=== PATIENT | male | born 1990 | race African-American/Black ===

== ENCOUNTER 2024-05-10 18:05 | Inpatient (IN) | payer MEDICAID, SELFPAY ==
--- NOTE | ~2024-05-10 | CT_ITS ---
EXAMINATION: CT PELVIS WITH CONTRAST CLINICAL INFORMATION: Scrotal pain COMPARISON: Scrotal ultrasound from the same day TECHNIQUE: Helical scanning was performed with submillimeter collimation through the pelvis with the use of oral contrast and during bolus intravenous injection of 85 mL of Omnipaque 350 intravenous contrast. Sagittal and coronal multiplanar 2-D reconstructions were obtained. This CT examination was performed using dose optimization techniques as appropriate, variously including the following: *Automated exposure control *Adjustment of mA and/or kV according to patient size (this includes techniques or standardized protocols for targeted exams where dose is matched to indication/reason for exam; i.e. extremities or head) *Use of iterative reconstruction technique DLP: 360 mGy-cm FINDINGS: Limited evaluation in some regions due to motion artifact. There is subcutaneous edema in the left inguinal region, perineum, and scrotum. No soft tissue gas identified. There are multiple enlarged bilateral inguinal lymph nodes, left greater than right measuring up to approximately 1.8 cm in short axis dimension, which are favored to be reactive. Partially distended urinary bladder without significant wall thickening. Prostate gland appears unremarkable. No appreciable bowel abnormality in the setting of motion artifact. Appendix appears nondilated. No free fluid or definite free air. Degenerative change noted in the spine at L5-S1. CT/CT pelvis w IV con IMPRESSION: Subcutaneous edema in the left inguinal region, perineum, and scrotum, suspicious for cellulitis/infection. No soft tissue gas identified. Bilateral inguinal adenopathy is favored to be reactive in this setting.
--- NOTE | ~2024-05-10 | US_ITS ---
EXAMINATION: US SCROTUM CLINICAL INFORMATION: Left scrotal swelling and pain. COMPARISON: None available. TECHNIQUE: A sonogram of the scrotum was performed assessing peres-scale appearance and color Doppler flow. Spectral Doppler analysis of the arterial and venous flow were performed in the testes bilaterally. FINDINGS: RIGHT: Right testicle measures 4.7 x 3.0 x 2.9 cm, volume 21.5 mL. No focal testicular parenchymal lesions are visualized. Spectral Doppler analysis of the arterial and venous flow is normal in the right testis. Right epididymal head is normal in size. No right hydrocele or varicocele is seen. Right epididymal Doppler flow is normal. LEFT: Left testicle measures 4.4 x 2.5 x 2.6 cm, volume 15.0 mL. No focal testicular parenchymal lesions are visualized. Spectral Doppler analysis of the arterial and venous flow is normal in the left testis. Left epididymal head is normal in size. No left hydrocele or varicocele is seen. Left epididymal Doppler flow is normal. Diffuse skin thickening and subcutaneous edema seen within the left scrotum US/US scrotum IMPRESSION: 1. Diffuse skin thickening and subcutaneous edema seen within the left scrotum. 2. Bilateral testicles and epididymides are normal.
--- NOTE | ~2024-05-10 | US_ITS ---
EXAMINATION: US SCROTUM CLINICAL INFORMATION: Left scrotal swelling and pain. COMPARISON: None available. TECHNIQUE: A sonogram of the scrotum was performed assessing peres-scale appearance and color Doppler flow. Spectral Doppler analysis of the arterial and venous flow were performed in the testes bilaterally. FINDINGS: RIGHT: Right testicle measures 4.7 x 3.0 x 2.9 cm, volume 21.5 mL. No focal testicular parenchymal lesions are visualized. Spectral Doppler analysis of the arterial and venous flow is normal in the right testis. Right epididymal head is normal in size. No right hydrocele or varicocele is seen. Right epididymal Doppler flow is normal. LEFT: Left testicle measures 4.4 x 2.5 x 2.6 cm, volume 15.0 mL. No focal testicular parenchymal lesions are visualized. Spectral Doppler analysis of the arterial and venous flow is normal in the left testis. Left epididymal head is normal in size. No left hydrocele or varicocele is seen. Left epididymal Doppler flow is normal. Diffuse skin thickening and subcutaneous edema seen within the left scrotum US/US scrotum doppler IMPRESSION: 1. Diffuse skin thickening and subcutaneous edema seen within the left scrotum. 2. Bilateral testicles and epididymides are normal.
[2024-05-10 18:12] VITALS: BP 130/85; PULSE 97; RESP 16; TEMP 36.5; O2SAT 96; BMI 35.3
[2024-05-10 19:56] VITALS: BP 126/88; PULSE 94; RESP 16; TEMP 36.7; O2SAT 96
[2024-05-10 21:27] LABS: MANUAL DIFF FLAG NO
[2024-05-10 21:44] LABS: Lactic Acid 0.8 mmol/L (0.5-2.0)
[2024-05-10 21:46] LABS: Basophils Percent Auto 0.3 % (0-2); Eosinophils Absolute Auto 0.8 X10*3/uL (0.0-0.4); Eosinophils Percent Auto 5.8 % (0-4); Hematocrit 39.5 % (42.0-52.0); Hemoglobin 13.6 g/dl (14.0-18.0); Imm Gran Abs Auto 0.04 X10*3/uL (0.00-0.03); Imm Gran Pct Auto 0.3 % (0.0-0.4); Lymphocytes Absolute Auto 2.5 X10*3/uL (1.2-4.9); Mean Corpuscular HGB Conc 34.4 g/dl (31.0-36.0); Mean Corpuscular Hemoglobin 28.9 pg (27.0-33.0); Mean Platelet Volume 8.6 fL (9.4-12.4); Monocytes Absolute Auto 0.7 X10*3/uL (0.1-1.2); Neutrophils Absolute Auto 10.3 x10*3/uL (2.0-8.3); Neutrophils Percent Auto 71.6 % (45-73); Platelet Count 302 X10*3/uL (160-400); Red Cell Distribution Width 13.9 % (11.0-16.0); White Blood Count 14.4 X10*3/uL (4.8-10.8)
[2024-05-10 21:47] LABS: Alanine Aminotransferase 28 U/L (0-40); Albumin Level 3.6 g/dL (3.5-5.0); Alkaline Phosphatase 70 U/L (39-117); Anion Gap 11 (12-20); Aspartate Amino Transferase 14 U/L (5-37); Bilirubin Total 0.4 mg/dL (0.0-1.0); Blood Urea Nitrogen 11 mg/dL (9-16); Calcium 8.7 mg/dL (8.4-10.2); Carbon Dioxide 27 mmol/L (22-29); Chloride 104 mmol/L (96-108); Creatinine Clr Calc Pharmacy 117.9; Estimated Glomerular Filt Rate > 60; Glucose Random 280 mg/dL (60-115); Lipase 33 U/L (8-78); Potassium 4.1 mmol/L (3.3-5.1); Sodium 138 mmol/L (135-145); Total Protein 8.1 g/dL (6.5-8.0)
--- NOTE | 2024-05-10 22:22 | ED_ITS ---
HPI - Male Genitourinary General Chief complaint: Urogenital-Male Stated complaint: groin pain and swelling Time Seen by Provider: 05/10/24 21:05 Source: patient, RN notes reviewed and old records reviewed Mode of arrival: ambulatory Limitations: no limitations History of Present Illness ED Provider: Jairon BOYKIN Narrative: 34-year-old male past medical history significant for diabetes presents for evaluation of sore. Patient states he has a small pimple to the left side of his scrotum for about 1 week He reports that this afternoon few hours prior to arrival he has squeezed the area trying to ?popped the pimple. ? He then took a nap and when he woke up his scrotum was significantly swollen He reports that he had only minor discomfort He denies any fevers or chills He has had similar episodes in the past that did not seem at severe Related Data Allergies Allergy/AdvReac Type Severity Reaction Status Date / Time No Known Allergies Allergy Verified 05/10/24 18:15 Review of Systems 2 Constitutional: Constitutional: Denies body ache(s), Denies chills, Denies fever(s) and Denies frequent falls ENT: Denies vertigo Cardiovascular: Cardiovascular: Denies chest pain and Denies dyspnea Respiratory: Respiratory: Denies cough and Denies dyspnea Gastrointestinal: Gastrointestinal: Denies abdominal pain, Denies nausea and Denies vomiting Genitourinary: Genitourinary: Denies hematuria, Denies oliguria, Denies dysuria, Denies penile discharge, Reports scrotal swelling and Denies testicular pain Musculoskeletal: Musculoskeletal: Denies back pain Integumentary/Breasts: Skin/Breast: Denies rash Neurologic: Denies vertigo and Denies frequent falls PMFSH Social History Social History Advance Directives: No Advance Directives Information Provided: No Do you have a plan to hurt others: No Plan Physical Exam 2 Vital Signs: Vital Signs: Last Vital Signs Temp 98.0 F 05/10/24 19:56 Pulse 94 05/10/24 19:56 Resp 16 05/10/24 19:56 BP 126/88 05/10/24 19:56 Pulse Ox 96 05/10/24 19:56 O2 Del Method Room Air 05/10/24 19:56 BMI result Body Mass Index 35.3 Const: General: healthy appearing, comfortable, no acute distress, alert and awake Nutritional Appearance: well nourished Orientation/consciousness: p atient oriented x3 HEENT: Head: Yes normocephalic and Yes atraumatic Eyes: Eyelids: Yes eyelids normal Conjunctivae: conjunctivae normal S clerae: sclerae normal Corneas: corneas normal Pupils: Equal, round and reactive pupils present EOM: EOMs intact bilaterally Neck: Neck: Yes full ROM Resp: Effort & Inspection: normal respiratory effort, able to speak in complete sentences and not labored GI: Inspection: No distended Palpation (GI): Soft to palpation, not firm, nontender, no guarding and not rigid : Other: Is marked scrotal edema left greater than right. There is no significant erythema, there is some tenderness to palpation. There is a small boil in the perineal region. No active drainage Penis: normal penis, uncircumcised, no masses, no phimosis, no swelling and no ulcerations Meatus: meatus normal, no meatla discharge and No Blood at meatus present Scrotum: edematous Skin: General skin exam: elasticity normal Neuro: General: patient oriented x3 Cranial nerves: Yes Equal, round and reactive pupils present and Yes Bilaterally intact EOM present Cognition (Neuro): normal cognition Course Reevaluation(s) Reevaluation #1: Patient's CT scan shows significant scrotal edema/cellulitis involving the perineum, scrotum and inguinal region. He is not septic and there is no abscess or free air to suggest Sana. However given the rapidly spreading cellulitis will discuss with the hospitalist for admission Time: 23:50 Medications Administered Discontinued Medications Generic Name Dose Route Start Last Admin Trade Name Efrem PRN Reason Stop Dose Admin Iohexol 85 ml 05/10/24 22:42 05/10/24 22:42 Iohexol 350 Mg/Ml 100 Ml Infus..Btl IV 05/10/24 22:43 85 ml ONCE ONE Administration Ondansetron HCl 4 mg 05/10/24 22:38 05/10/24 23:14 Ondansetron Hcl 4 Mg/2 Ml Vial IVPUSH 05/10/24 22:39 4 mg ONCE ONE Administration Medical Decision Making Medical Decision Making MDM Narrative: 34-year-old male with history of diabetes presents for evaluation of scrotal swelling. He does admit to lifting heavy a few days ago trying to curl 120 lb barbell. For he also reports that he popped a pimple in the area and he is a known diabetic. Clinically he has some inguinal tenderness and there is concern for hernia. An ultrasound was ordered to rule out testicular torsion which I feel is less likely given her constant the patient is. The patient is afebrile, he does have a leukocytosis in his a known diabetic, Sana's gangrene is on the differential. I feel this is less likely given the lack of tenderness on exam. However he does have rapidly progressing scrotal edema, plan for CT scan of the pelvis to evaluate for Sana's gangrene versus scrotal abscess. Differential Diagnosis Differential Diagnoses: The differential diagnosis associated with the presentation includes Epididymitis Gonorrhea chlamydia Inguinal hernia Hydrocele Varicocele Scrotal abscess Lab Data MDM Lab Attestation statement: I reviewed the patient's lab results. Leukocytosis to 14.4 K. there is a left shift. The patient does have a mild anemia. Unclear baseline we have no previous labs. This is elevated to 280 and he is a known diabetic. However carbon dioxide is within normal limits. There is no evidence of DKA. chemistries normal limits. 05/10/24 21:23 05/10/24 21:23 Labs: Lab Results 05/10/24 05/10/24 Range/Units 21:23 23:29 WBC 14.4 H (4.8-10.8) X10*3/uL RBC 4.70 (4.60-5.80) X10*6/uL Hgb 13.6 L (14.0-18.0) g/dl Hct 39.5 L (42.0-52.0) % MCV 84.0 (80.0-98.0) fL MCH 28.9 (27.0-33.0) pg MCHC 34.4 (31.0-36.0) g/dl RDW 13.9 (11.0-16.0) % Plt Count 302 (160-400) X10*3/uL MPV 8.6 L (9.4-12.4) fL Immature Gran % (Auto) 0.3 (0.0-0.4) % Neut % (Auto) 71.6 (45-73) % Lymph % (Auto) 17.0 L (20-40) % [place] % (Auto) 5.0 (2-11) % Eos % (Auto) 5.8 H (0-4) % Baso % (Auto) 0.3 (0-2) % Lymph # (Auto) 2.5 (1.2-4.9) X10*3/uL [place] # (Auto) 0.7 (0.1-1.2) X10*3/uL Eos # (Auto) 0.8 H (0.0-0.4) X10*3/uL Baso # (Auto) 0.0 (0.0-0.2) X10*3/uL Abs Immat Gran (auto) 0.04 H (0.00-0.03) X10*3/uL Absolute Neuts (auto) 10.3 H (2.0-8.3) x10*3/uL Absolute Nucleated RBC 0.000 (0.0-0.012) X10*3/uL Nucleated RBC % (auto) 0.0 (0.0-0.2) /100WBC Sodium 138 (135-145) mmol/L Potassium 4.1 (3.3-5.1) mmol/L Chloride 104 (96-108) mmol/L Carbon Dioxide 27 (22-29) mmol/L Anion Gap 11 L (12-20) BUN 11 (9-16) mg/dL Creatinine 1.17 (0.5-1.4) mg/dL Estim Creat Clear Calc 117.9 Estimated GFR > 60 Random Glucose 280 H (60-115) mg/dL Lactic Acid 0.8 (0.5-2.0) mmol/L Calcium 8.7 (8.4-10.2) mg/dL Total Bilirubin 0.4 (0.0-1.0) mg/dL AST 14 (5-37) U/L ALT 28 (0-40) U/L Alkaline Phosphatase 70 (39-117) U/L Total Protein 8.1 H (6.5-8.0) g/dL Albumin 3.6 (3.5-5.0) g/dL Lipase 33 (8-78) U/L Urine Color Yellow Urine Appearance Clear Urine pH 5.5 (5.0-9.0) Ur Specific [place] >= 1.030 H (1.005-1.025) Urine Protein 30 (1+) H (Neg-Trace) mg/dL Urine Glucose (UA) >=1000 H (Negative) mg/dL Urine Ketones Negative (Negative) mg/dL Urine Blood Moderate (2+) H (Negative) Urine Nitrite Negative (Negative) Ur Leukocyte Esterase Negative (Negative) Urine RBC 11-20 H (0-2) /HPF Urine WBC 0-5 (0-5) /HPF Ur Squamous Epith Cells 0-2 (0-2) /HPF Urine Bacteria None Seen (None Seen) Hyaline Casts 0-2 (0-2) /LPF Discharge Plan Discharge Clinical Impression: Cellulitis of scrotum Patient Disposition: Admitted As Inpatient Print Language: [place]
[2024-05-10] MEDS: iohexoL 350 MG/ML 100 ML INFUS..BTL 85 ML IV (22:42)
[2024-05-10] MEDS: ondansetron HCL 4 MG/2 ML VIAL IVPUSH (23:14)
[2024-05-10 23:36] LABS: Appearance Urine Clear; Color Urine Yellow; Glucose Urine UA >=1000 mg/dL (Negative); Leukocyte Esterase Urine Negative (Negative); Nitrite Urine Negative (Negative); PH 5.5 (5.0-9.0); Specific Gravity - Urine >= 1.030 (1.005-1.025); UMIC TRIGGER UACC YES; Urine Blood Moderate (2+) (Negative); Urine Ketones Negative (Negative); Urine Protein 30 (1+) mg/dL (Neg-Trace)
[2024-05-10 23:39] LABS: Bacteria Urine None Seen (None Seen); Hyaline Casts Urine 0-2 /LPF (0-2); Squamous Epithelial Cell Urine 0-2 /HPF (0-2); WBC Urine 0-5 /HPF (0-5)
[2024-05-10 23:56] VITALS: BP 122/78; PULSE 68; RESP 16; TEMP 36.7; O2SAT 94
[2024-05-11] MEDS: vancomycin/NS 2,000 MG/500 ML PLAST..BAG 250 MG IV (00:02)
--- NOTE | 2024-05-11 00:37 | P.HPHOSP_ITS ---
History of Present Illness Date of Service: 05/11/24 Attending physician on admission: Radha Marsh Chief Complaint: Scrotum pain Jerry Seymour is a 34 years old man with past medical history significant for type 2 diabetes mellitus (he is supposed to be using insulin but does not want to use it) and multiple abscesses presents to the emergency department complaining of left scrotal pain, induration and inflammation that has been getting worse for the last 4 days. Today, he noted some drainage over the left testicular region. He squeeze a boil that he had in that area. Denies fever or chills. Denies headache, dizziness or generalized weakness. He did not report any cardiopulmonary or gastrointestinal symptoms. Denied any acute urinary changes. He drinks alcohol socially and smokes marijuana and tobacco daily (1 pack every 2 days). Denied illicit drug use. In the ED, he was found to have normal vital signs. Blood workup was remarkable for leukocytosis of 14.4. Hemoglobin is 13.6 and platelets are normal. There are no significant electrolyte imbalances. Renal function is normal. Random glucose is 280. LFTs are normal. Pelvis CT scan showed subcutaneous edema in the left inguinal region, perineum and scrotum suspicious for cellulitis/infection without soft tissue gas identified. There is bilateral inguinal adenopathy. Scrotal ultrasound showed diffuse skin thickening and subcutaneous edema seen within the left scrotum. Bilateral testicles and epididymides are normal. ED tx: Zofran 4 mg IV (vomited after receiving contrast). Vancomycin 2 g IV. Review of Systems 2 Review of Systems: All 12 systems were reviewed and normal except as noted in HPI. [facility] Medical History (Updated 05/11/24 @ 00:54 by Radha Marsh MD) Obesity (BMI 30.0-34.9) Type 2 diabetes mellitus Social History Advance Directives: No Advance Directives Information Provided: No Do you have a plan to hurt others: No Plan Meds Allergies Allergy/AdvReac Type Severity Reaction Status Date / Time No Known Allergies Allergy Verified 05/10/24 18:15 Active Medications: Current Medications Acetaminophen (Acetaminophen 325 Mg Tablet) 975 mg PO Q6H PRN PRN Reason: Pain, Mild (Pain Scale 1-3), fever or headache Enoxaparin Sodium (Enoxaparin Sodium 40 Mg/0.4 Ml Syringe) 40 mg SUBCUT Q24H YVON Glucose (Glucose Gel 15 Gm Gel..Gram.) 15 gm PO Q15M PRN; Protocol PRN Reason: per Hypoglycemia Standing Ord. Vancomycin HCl (Vancomycin/Ns) 2,000 mg in 500 mls @ 250 mls/hr IV ONCE ONE Stop: 05/11/24 01:42 Last Admin: 05/11/24 00:02 Dose: 250 mls/hr Sodium Chloride (Ns) 1,000 mls @ 999 mls/hr IV .Q1H1M [facility] Stop: 05/11/24 01:30 Dextrose (D10) 250 mls @ 750 mls/hr IV Q15M PRN; Protocol PRN Reason: per Hypoglycemia Standing Ord. Ibuprofen (Ibuprofen 600 Mg Tablet) 600 mg PO TID [facility] Stop: 05/11/24 21:01 Insulin Human Lispro (Insulin Lispro 100 Unit/Ml 3 Ml Vial) 0 unit SUBCUT QIDACHS [facility]; Protocol Melatonin (Melatonin 3 Mg Tablet) 6 mg PO BEDTIME PRN PRN Reason: Insomnia Oxycodone HCl (Oxycodone Hcl Immed Release 5 Mg Tablet) 5 mg PO Q6H PRN PRN Reason: Pain, Severe (Pain Scale 7-10) Sodium Chloride (0.9 % Sodium Chloride Flush 3 Ml Syringe) 3 ml IVFLUSH QSHIFT [facility] Physical Exam 2 Vital Signs and Narrative: Vital Signs: Last Vital Signs Temp 98.0 F 05/10/24 23:56 Pulse 68 05/10/24 23:56 Resp 16 05/10/24 23:56 BP 122/78 05/10/24 23:56 Pulse Ox 94 05/10/24 23:56 O2 Del Method Room Air 05/10/24 23:56 BMI result Body Mass Index 35.3 Constitutional - Awake and Alert, No apparent distress. Obese. Pleasant. Cooperative. HEENT - Atraumatic head. Normal sclerae. Heart - RRR, No murmur. Lungs - Normal lung expansion, Normal respiratory effort, No respiratory distress, CTA bilaterally Abdomen - NT / ND; +BS; No rebound or guarding - There is induration of the left scrotal area, no fluctuances. Tenderness to palpation. Extremities - no calf tenderness bilaterally, no swelling Musculoskeletal - Normal inspection, normal ROM Skin - Warm/Dry Neurological - Alert & oriented x3. Patient moving all extremities symmetrically. Normal speech. Psychological - Appropriate affect Results Labs 05/10/24 21:23 05/10/24 21:23 Labs: Laboratory Results - last 24 hr 05/10/24 05/10/24 21:23 23:29 MCV 84.0 MCH 28.9 MCHC 34.4 RDW 13.9 Plt Count 302 MPV 8.6 L Immature Gran % (Auto) 0.3 Neut % (Auto) 71.6 Lymph % (Auto) 17.0 L [place] % (Auto) 5.0 Eos % (Auto) 5.8 H Baso % (Auto) 0.3 Lymph # (Auto) 2.5 [place] # (Auto) 0.7 Eos # (Auto) 0.8 H Baso # (Auto) 0.0 Abs Immat Gran (auto) 0.04 H Absolute Neuts (auto) 10.3 H Absolute Nucleated RBC 0.000 Nucleated RBC % (auto) 0.0 Anion Gap 11 L Estim Creat Clear Calc 117.9 Estimated GFR > 60 Random Glucose 280 H Lactic Acid 0.8 Calcium 8.7 Total Bilirubin 0.4 AST 14 ALT 28 Alkaline Phosphatase 70 Total Protein 8.1 H Albumin 3.6 Lipase 33 Urine Color Yellow Urine Appearance Clear Urine pH 5.5 Ur Specific [place] >= 1.030 H Urine Protein 30 (1+) H Urine Glucose (UA) >=1000 H Urine Ketones Negative Urine Blood Moderate (2+) H Urine Nitrite Negative Ur Leukocyte Esterase Negative Urine RBC 11-20 H Urine WBC 0-5 Ur Squamous Epith Cells 0-2 Urine Bacteria None Seen Hyaline Casts 0-2 Imaging Radiologist's Impressions: Impressions Scrotum Ultrasound 05/10/24 21:32 IMPRESSION: 1. Diffuse skin thickening and subcutaneous edema seen within the left scrotum. 2. Bilateral testicles and epididymides are normal. Scrotum Ultrasound 05/10/24 21:32 IMPRESSION: 1. Diffuse skin thickening and subcutaneous edema seen within the left scrotum. 2. Bilateral testicles and epididymides are normal. Pelvis CT 05/10/24 22:42 IMPRESSION: Subcutaneous edema in the left inguinal region, perineum, and scrotum, suspicious for cellulitis/infection. No soft tissue gas identified. Bilateral inguinal adenopathy is favored to be reactive in this setting. Assessment and Plan (1) Cellulitis of scrotum: Status: Acute (2) Uncontrolled type 2 diabetes mellitus with hyperglycemia: Status: Acute (3) Obesity (BMI 30.0-34.9): Status: Acute (4) Leukocytosis: Qualifiers: Leukocytosis type: unspecified Qualified Code(s): D72.829 - Elevated white blood cell count, unspecified Status: Acute (5) Heavy tobacco smoker: Status: Acute Sara Seymour is a 34 y/o man admitted with: * Scrotal cellulitis. Admit to hospitalist service. Continue empiric IV antibiotic therapy with vancomycin. Add therapy with ceftriaxone. IV fluids. Blood cultures were obtained -will follow results. * Uncontrolled type 2 diabetes mellitus. Noncompliance with insulin. BS before meals at bedtime. Insulin sliding scale. Diabetic diet. Check hemoglobin A1c. * Leukocytosis secondary to scrotal cellulitis. No SIRS. Continue to monitor. * Obesity, class II. BMI 35.3 kg/m2. Weight loss. * Tobacco dependence. Tobacco cessation education. DVT prophylaxis: Lovenox Code status: Full Patient will need hospitalization for at least 2 midnights for IV antibiotic therapy for extensive scrotal cellulitis in the setting of underlying uncontrolled type 2 diabetes mellitus. Quality Stroke Does the patient have a stroke diagnosis?: No VTE Prior VTE?: No VTE Risk Level:: Medical - moderate - high VTE Device Contraindication: Treatment Not Indicated VTE Drug Contraindication: N/A - Med Ordered
[2024-05-11 01:04] LABS: CT PCR NOT DETECTED (Not Detect.); NG PCR NOT DETECTED (Not Detect.)
[2024-05-11] MEDS: cefTRIAXone sodium 1 GM in 0.9 % Sodium Chloride 50 ML IV (02:11)
[2024-05-11] MEDS: 0.9 % Sodium Chloride 1,000 ML 999 ML IV (02:11)
[2024-05-11 02:15] VITALS: BP 120/78; PULSE 86; RESP 24; TEMP 37.1; O2SAT 96
--- NOTE | 2024-05-11 02:48 | PC.NURSE ---
Patient is alert and oriented x3, VSS. Patient denies any pain. Patient medicated per MAR. He requested diet benito poli , tolerated well. Patient watching TV in a stretcher bed, offers no complaints at this time. Call cotton in patient's reach, plan of care ongoing.
[2024-05-11 04:21] LABS: Glucose, Whole Blood 161 mg/dL (60-115)
[2024-05-11] MEDS: Insulin Lispro 100 UNIT/ML 3 ML VIAL SUBCUT ×3 (04:27→22:04)
[2024-05-11 06:06] LABS: MANUAL DIFF FLAG NO
[2024-05-11 06:15] LABS: Basophils Absolute Auto 0.1 X10*3/uL (0.0-0.2); Basophils Percent Auto 0.3 % (0-2); Eosinophils Absolute Auto 0.9 X10*3/uL (0.0-0.4); Eosinophils Percent Auto 5.3 % (0-4); Hematocrit 37.4 % (42.0-52.0); Hemoglobin 12.8 g/dl (14.0-18.0); Imm Gran Abs Auto 0.07 X10*3/uL (0.00-0.03); Imm Gran Pct Auto 0.4 % (0.0-0.4); Lymphocytes Absolute Auto 2.9 X10*3/uL (1.2-4.9); Lymphocytes Percent Auto 17.6 % (20-40); Mean Corpuscular HGB Conc 34.2 g/dl (31.0-36.0); Mean Corpuscular Hemoglobin 28.9 pg (27.0-33.0); Mean Corpuscular Volume 84.4 fL (80.0-98.0); Mean Platelet Volume 8.6 fL (9.4-12.4); Monocytes Absolute Auto 0.9 X10*3/uL (0.1-1.2); Monocytes Percent Auto 5.7 % (2-11); Neutrophils Absolute Auto 11.5 x10*3/uL (2.0-8.3); Neutrophils Percent Auto 70.7 % (45-73); Platelet Count 286 X10*3/uL (160-400); Red Blood Count 4.43 X10*6/uL (4.60-5.80); White Blood Count 16.3 X10*3/uL (4.8-10.8)
[2024-05-11 06:22] LABS: Anion Gap 12 (12-20); Blood Urea Nitrogen 7 mg/dL (9-16); Carbon Dioxide 25 mmol/L (22-29); Chloride 106 mmol/L (96-108); Creatinine Clr Calc Pharmacy 130.1; Estimated Glomerular Filt Rate > 60; Glucose Random 154 mg/dL (60-115); Potassium 3.9 mmol/L (3.3-5.1); Sodium 139 mmol/L (135-145)
--- NOTE | 2024-05-11 07:26 | MHC.EDTECH ---
Breakfast tray place in pt's room at bedside on table
[2024-05-11 07:28] LABS: Glucose, Whole Blood 134 mg/dL (60-115)
[2024-05-11 07:46] LABS: Estimated Average Glucose 252 mg/dL; Hemoglobin A1c % 10.4 % (<6.0)
--- NOTE | 2024-05-11 08:43 | PHA.PROG ---
Admission Date/Time: May 11, 2024 00:26 Indication: SKIN Weight in k.934 kg Adjusted body weight in Kg: [place] body weight in Kg: Obesity Dosing Indication % IBW: Serum Creatinine - Last 168 Hours 05/10/24 05/11/24 21:23 05:42 Creatinine 1.17 1.06 Estimated CrCl and GFR - Last 168 Hours 05/10/24 05/11/24 21:23 05:42 Estim Creat Clear Calc 117.9 130.1 Estimated GFR > 60 > 60 Vancomycin Loading Dose: 2000 MG Current Vancomycin Dosing Regimen: 1250 MG Q12H Vancomycin Monitoring using AUC goal of 400 - 600 range with trough as surrogate marker: IGL=933 TROUGH=14.6 Date and Time for next Vancomycin Level to be drawn: 05/12/24 @1000 Pharmacist Comments on Vancomycin Plan: Vancomycin dosing will take advantage of [employer] as a clinical decision support tool that uses Bayesian modeling to calculate individual patient's pharmacokinetic parameters and forecast the patient's drug concentration time course with the target goal AUC 24 range of 400 - 600 mg/L/hr.
--- NOTE | 2024-05-11 08:50 | PHA.MEDREC ---
Pharmacy Consult ? Medication Reconciliation Pharmacy has completed the medication reconciliation.
[2024-05-11 09:41] VITALS: BP 144/89; PULSE 84; RESP 12; TEMP 36.8; O2SAT 97
[2024-05-11 11:02] LABS: Glucose, Whole Blood 138 mg/dL (60-115)
[2024-05-11] MEDS: Enoxaparin Sodium 40 MG/0.4 ML SYRINGE SUBCUT (11:09)
[2024-05-11] MEDS: 0.9 % Sodium Chloride Flush 3 ML SYRINGE IVFLUSH ×2 (11:12→16:26)
--- NOTE | 2024-05-11 11:28 | PM.EVENT ---
Event Note Date of Service: 05/11/24 Event Note: seen and evaluated this morning scrotum swollen with no significant warmth or tenderness Drainage from scrotum, bloody get culture from pus continue IV antibiotics Time Spent With Patient Time: Total time managing care of this patient today ____ minutes.
[2024-05-11] MEDS: vancomycin HCL 1,250 MG in 0.9 % Sodium Chloride 250 ML 166.67 MG IV ×2 (12:00→23:31)
[2024-05-11 15:08] VITALS: BP 141/98; PULSE 83; RESP 18; TEMP 37.1; O2SAT 98
[2024-05-11 16:26] LABS: Glucose, Whole Blood 183 mg/dL (60-115)
[2024-05-11] MEDS: Ibuprofen 600 MG TABLET PO ×2 (17:00→22:04)
[2024-05-11 19:42] VITALS: BP 118/67; PULSE 76; RESP 14; TEMP 36.8; O2SAT 100
[2024-05-11 19:51] LABS: Glucose, Whole Blood 174 mg/dL (60-115)
[2024-05-12] MEDS: 0.9 % Sodium Chloride Flush 3 ML SYRINGE IVFLUSH (01:00)
[2024-05-12] MEDS: cefTRIAXone sodium 1 GM in 0.9 % Sodium Chloride 50 ML IV (01:26)
[2024-05-12 03:37] VITALS: BP 143/87; PULSE 67; RESP 14; TEMP 36.6; O2SAT 100
[2024-05-12 06:44] LABS: Hematocrit 38.6 % (42.0-52.0); Mean Corpuscular HGB Conc 33.7 g/dl (31.0-36.0); Mean Corpuscular Hemoglobin 28.1 pg (27.0-33.0); Mean Corpuscular Volume 83.4 fL (80.0-98.0); Mean Platelet Volume 8.5 fL (9.4-12.4); Platelet Count 310 X10*3/uL (160-400); Red Blood Count 4.63 X10*6/uL (4.60-5.80); Red Cell Distribution Width 13.6 % (11.0-16.0); White Blood Count 13.5 X10*3/uL (4.8-10.8)
[2024-05-12 07:11] LABS: Anion Gap 11 (12-20); Blood Urea Nitrogen 9 mg/dL (9-16); Calcium 9.2 mg/dL (8.4-10.2); Carbon Dioxide 28 mmol/L (22-29); Chloride 102 mmol/L (96-108); Creatinine Clr Calc Pharmacy 131.4; Estimated Glomerular Filt Rate > 60; Glucose Random 185 mg/dL (60-115); Potassium 3.9 mmol/L (3.3-5.1); Sodium 137 mmol/L (135-145)
[2024-05-12 07:31] LABS: Glucose, Whole Blood 181 mg/dL (60-115)
[2024-05-12 09:17] VITALS: BP 144/97; PULSE 77; RESP 18; TEMP 36.1; O2SAT 99
[2024-05-12 10:32] LABS: Vancomycin Random 8.4 mcg/mL (15-20)
--- NOTE | 2024-05-12 10:57 | HE.PHANOTE ---
VANCO DOSE ADJUSTMENT BASED ON SCR AND TROUGH OF 8.4 DOSE INCREASED TO 1500 Q 12H. NEXT TROUGH 05/12 @ 2100
[2024-05-12 11:31] LABS: Glucose, Whole Blood 166 mg/dL (60-115)
--- NOTE | 2024-05-12 11:45 | PM.DS ---
DS: Providers Provider Date of Service: 05/12/24 Date of admission: 05/11/24 00:26 Primary care physician: None Physician Consults: 05/11/24 11:42 Consult to Wound Care Routine Reason for consultation: scrotal cellulitis DS: Diagnosis Discharge Diagnosis (1) Cellulitis of scrotum: Status: Acute (2) Uncontrolled type 2 diabetes mellitus with hyperglycemia: Status: Acute (3) Obesity (BMI 30.0-34.9): Status: Acute (4) Leukocytosis: Status: Acute (5) Heavy tobacco smoker: Status: Acute DS: Summary Hospital Course Hospital Course: Admission note HPI Jerry Seymour is a 34 years old man with past medical history significant for type 2 diabetes mellitus (he is supposed to be using insulin but does not want to use it) and multiple abscesses presents to the emergency department complaining of left scrotal pain, induration and inflammation that has been getting worse for the last 4 days. Today, he noted some drainage over the left testicular region. He squeeze a boil that he had in that area. Denies fever or chills. Denies headache, dizziness or generalized weakness. He did not report any cardiopulmonary or gastrointestinal symptoms. Denied any acute urinary changes. He drinks alcohol socially and smokes marijuana and tobacco daily (1 pack every 2 days). Denied illicit drug use. In the ED, he was found to have normal vital signs. Blood workup was remarkable for leukocytosis of 14.4. Hemoglobin is 13.6 and platelets are normal. There are no significant electrolyte imbalances. Renal function is normal. Random glucose is 280. LFTs are normal. Pelvis CT scan showed subcutaneous edema in the left inguinal region, perineum and scrotum suspicious for cellulitis/infection without soft tissue gas identified. There is bilateral inguinal adenopathy. Scrotal ultrasound showed diffuse skin thickening and subcutaneous edema seen within the left scrotum. Bilateral testicles and epididymides are normal. ED tx: Zofran 4 mg IV (vomited after receiving contrast). Vancomycin 2 g IV. Hospital course The patient was admitted for scrotal cellulitis as CT scan showed subcutaneous edema but no abscess. treated with IV Vancomycin and Ceftriaxone with good response as swelling and pain improved significantly. blood cultures remain negative after >24 hours. to be discharged on Doxycycline and Augmentin for 1 week. HbA1c of 10.3 as he is not on any active diabetes medicaitons. Started on SSI and diabetic diet with better control of blood sugar. To be discharged on Lantus 5 units daily along with SSI. Metformin 500 mg bid. diabetic education provided during hospital stay. To follow with PCP for further adjustment of his medications. Advised to have diabetic diet and lose weight. Discharge plan Take antibiotics of Doxycycline and Augmentin as prescribed Keep the wound area clean and dry We advise you to increase physical activities and reduce weight Start Metformin twice daily after finishing the Antibiotics Start Lantus and Humalog insulin as prescribed Follow up with a Primary care physician for further adjustments of diabetes medications The patient made quicker than expected improvement and will not need a 2nd overnight stay. Time Attestation Discharge Coordination Time (in mins): 34 Quality: Safe Use of Opioids Does Pt have an Active Cancer Diagnosis on the Problem List?: No Quality: Stroke Does the patient have a stroke diagnosis?: No Physical Exam Vital Signs: Vital Signs: Last Vital Signs Temp 97 F 05/12/24 09:17 Pulse 77 05/12/24 09:17 Resp 18 05/12/24 09:17 BP 144/97 H 05/12/24 09:17 Pulse Ox 99 05/12/24 09:17 O2 Del Method Room Air 05/12/24 09:17 BMI result Body Mass Index 35.3 Const: Other: Constitutional : Awake, interactive, not in distress Neck : Normal inspection, Supple Cardiovascular : RRR, no JVP, no lower extremity edema Respiratory : good bilateral air entry, no crackles, wheezes or rhonchi Gastrointestinal: soft, lax, Normal bowel sounds, Non tender Skin : Warm, Dry, scrotal is non-tender or warm, minimal drainage noted Neurological : Alert & oriented x3, No focal deficit DS: Data Data Completed and Pending Labs on day of discharge: Laboratory Results - last 24 hr 05/11/24 05/11/24 05/12/24 16:20 19:43 06:27 WBC 13.5 H RBC 4.63 Hgb 13.0 L Hct 38.6 L MCV 83.4 MCH 28.1 MCHC 33.7 RDW 13.6 Plt Count 310 MPV 8.5 L Absolute Nucleated RBC 0.000 Nucleated RBC % (auto) 0.0 Sodium 137 Potassium 3.9 Chloride 102 Carbon Dioxide 28 Anion Gap 11 L BUN 9 Creatinine 1.05 Estim Creat Clear Calc 131.4 Estimated GFR > 60 POC Glucose 183 H 174 H Random Glucose 185 H Calcium 9.2 Random Vancomycin 05/12/24 05/12/24 05/12/24 07:18 10:11 11:27 WBC RBC Hgb Hct MCV MCH MCHC RDW Plt Count MPV Absolute Nucleated RBC Nucleated RBC % (auto) Sodium Potassium Chloride Carbon Dioxide Anion Gap BUN Creatinine Estim Creat Clear Calc Estimated GFR POC Glucose 181 H 166 H Random Glucose Calcium Random Vancomycin 8.4 L Preliminary micro results at discharge 05/10/24 22:30 Blood Culture - Preliminary Blood - Venous No growth after 24 hours. 05/10/24 21:23 Blood Culture - Preliminary Blood - Venous No growth after [address] scan - abdomen: Radiologist's impression: ITS Impressions Scrotum Ultrasound 05/10/24 21:32 IMPRESSION: 1. Diffuse skin thickening and subcutaneous edema seen within the left scrotum. 2. Bilateral testicles and epididymides are normal. Scrotum Ultrasound 05/10/24 21:32 IMPRESSION: 1. Diffuse skin thickening and subcutaneous edema seen within the left scrotum. 2. Bilateral testicles and epididymides are normal. Pelvis CT 05/10/24 22:42 IMPRESSION: Subcutaneous edema in the left inguinal region, perineum, and scrotum, suspicious for cellulitis/infection. No soft tissue gas identified. Bilateral inguinal adenopathy is favored to be reactive in this setting. Discharge Plan Discharge Anticipated Discharge Date/Time: 05/12/24 11:19 Patient Disposition: Home, Self-Care Discharge Diagnosis: Cellulitis of scrotum Uncontrolled diabetes type 2 Referrals: Physician,None [Primary Care Provider] - 1 Week Discharge Medications: New insulin lispro [Humalog KwikPen Insulin] 100 unit/mL insulin pen See Protocol subcut USEASDIRECTD Qty: 15 0RF Protocol: Insulin Correction Scale Less than or equal to 110 ---- Give (units): 0 111 to 150 Give (units): 0 151 to 200 Give (units): 2 201 to 250 Give (units): 4 251 to 300 Give (units): 6 301 to 350 Give (units): 8 Greater than 350 Give (units): 10 Call MD if Blood Glucose > : 350 insulin glargine 100 unit/mL (3 mL) insulin pen 5 unit subcut QPM Qty: 15 1RF metformin 500 mg tablet 500 mg PO BIDWMEAL Qty: 120 1RF doxycycline monohydrate 100 mg capsule 100 mg PO BID Qty: 14 0RF amoxicillin-pot clavulanate 875-125 mg tablet 1 tab PO BID Qty: 14 0RF (DME) FreeStyle Lite Strips Strip See Rx Instructions .ROUTE .MEDSUPPLY Qty: 100 2RF Rx Instructions: QID (DME) lancets Misc See Rx Instructions .ROUTE .MEDSUPPLY Qty: 200 2RF Rx Instructions: 4 times daily (DME) blood-glucose meter [FreeStyle Lite Meter] Kit See Rx Instructions .ROUTE .MEDSUPPLY Qty: 1 0RF Rx Instructions: As directed alcohol swabs Pads, Medicated 1 pad topical QIDACHS Qty: 200 2RF (DME) pen needle, diabetic [Pen Needle] 31 gauge x 5/16 needle See Rx Instructions .ROUTE .MEDSUPPLY Qty: 200 1RF Rx Instructions: As directed Discharge Orders: Discharge Order (Routine); Ordered 05/12/24 Ordered By: Ramesh Camarillo Diet: Diabetic diet Activity on Discharge: As tolerated Stand Alone Forms: Patient Portal Discharge page Print Language: Mongolian Care Plan Goals: Take antibiotics of Doxycycline and Augmentin as prescribed Keep the wound area clean and dry We advise you to increase physical activities and reduce weight Start Metformin twice daily after finishing the Antibiotics Start Lantus and Humalog insulin as prescribed Follow up with a Primary care physician for further adjustments of diabetes medications Health Concerns: Read below Plan of Treatment: Read below Assessment: Read below Discharge Date/Time: 05/12/24 12:45
[2024-05-12] MEDS: Insulin Lispro 100 UNIT/ML 3 ML VIAL SUBCUT (12:24)
--- NOTE | 2024-05-12 12:33 | MHC.CM.PN ---
pt dcd home self care
--- NOTE | 2024-05-12 12:33 | MHC.CM.PN ---
pt lives with family has own ride home axpects dc today
--- NOTE | 2024-05-12 12:40 | MHC.CM.PN ---
pcp list given to pt
--- NOTE | 2024-05-12 12:41 | PC.NURSE ---
Pt for discharge to home . reviewed discharge instructions . pt given diabetes informations sheets . pt reports hes familiar with self administering insulin and doing POC's. pt reports his sister is a nurse and girl friend is a PROCESS [employer]MI[employer] that will be able to assist him. all questions answered pt accepting of discharge to home
== END 2024-05-12 12:45 | disposition home or self-care (01) | DRG 501 ==
LOC: HO.ED 23:50 → HO.EDOVER 05-11 00:34 → HO.S3 05-11 07:50
PROVIDERS: Physician Assistant; Admitting Provider Internal Medicine; Emergency Provider Emergency Medicine; Visit Provider Student in an Organized Health Care Education/Training Program
DX: N49.2 Inflammatory disorders of scrotum (principal); E11.65 Type 2 diabetes mellitus with hyperglycemia; E66.8 Other obesity; F17.210 Nicotine dependence, cigarettes, uncomplicated; T38.3X6A Underdosing of insulin and oral hypoglycemic [antidiabetic] drugs, initial encounter; Z71.6 Tobacco abuse counseling; Z68.35 Body mass index [BMI] 35.0-35.9, adult; Z79.4 Long term (current) use of insulin; Z79.84 Long term (current) use of oral hypoglycemic drugs; Z91.128 Patient's intentional underdosing of medication regimen for other reason
CPT/HCPCS: 36415; 72193; 76870; 80048; 80053; 80202; 81001; 82947; 83036; 83605; 83690; 85025; 85027; 87040; 87491; 87591; 93975; 99285; J0696; J1650; J2405; J3370; J3371; Q9967

== ENCOUNTER → 2024-05-11 00:26 | Outpatient (BNV) | payer MEDICAID, SELFPAY | PROVIDERS: Admitting Provider Internal Medicine; Emergency Provider Emergency Medicine; Visit Provider Internal Medicine | DX: N49.2 Inflammatory disorders of scrotum (principal); E11.65 Type 2 diabetes mellitus with hyperglycemia; D72.829 Elevated white blood cell count, unspecified; F17.210 Nicotine dependence, cigarettes, uncomplicated | CPT/HCPCS: 99232; 99239; 99499 ==

== ENCOUNTER 2024-10-09 02:28 | Emergency (ER) | payer MEDICAID, SELFPAY ==
[2024-10-09 02:44] VITALS: BP 135/88; PULSE 99; RESP 18; TEMP 36.8; O2SAT 95; BMI 35.3
--- NOTE | 2024-10-09 03:29 | ED.GENADULT ---
HPI - General Adult General Chief complaint: General Medical Stated complaint: warts on finger Time Seen by Provider: 10/09/24 03:02 Source: patient Mode of arrival: ambulatory Limitations: no limitations History of Present Illness ED Provider: Dr. Karis Harley HPI narrative: Patient comes to the emergency room complaining of a wart in her left hand. Patient states it started approximately 3 months ago. Patient states that it is the 1st time that he is worse in his hands. Patient has been using salicylic acid and other [id number] solutions to try to have the de jesus fall off. However, it is still present. Patient states that tonight he accidentally almost pulled it off, now hanging from a small portion of the wart and it hurts if he touches anything Related Data Previous Rx's ?Medication ?Instructions ?Recorded alcohol swabs 1 pad topical QIDACHS #200 ea 05/12/24 amoxicillin 875 mg-potassium 1 tab PO BID #14 tabs 05/12/24 clavulanate 125 mg tablet blood sugar diagnostic (FreeStyle #100 ea 05/12/24 Lite Strips) blood-glucose meter (FreeStyle #1 ea 05/12/24 Lite Meter kit) doxycycline monohydrate 100 mg 100 mg PO BID #14 caps 05/12/24 capsule insulin glargine 100 unit/mL (3 5 unit (0.05 mL) subcut QPM #15 mL 05/12/24 mL) subcutaneous pen insulin lispro 100 unit/mL See Protocol subcut USEASDIRECTD 05/12/24 subcutaneous pen (Humalog KwikPen #15 mL (U-100) Insulin) lancets #200 ea 05/12/24 metformin 500 mg tablet 500 mg PO BIDWMEAL #120 tabs 05/12/24 pen needle, diabetic 31 gauge x #200 ea 05/12/24 5/16 (Pen Needle) Allergies Allergy/AdvReac Type Severity Reaction Status Date / Time No Known Allergies Allergy Verified 10/09/24 02:46 Review of Systems Review of Systems: Constitutional : No Weight loss, No Fever, No Chills, No Night Sweats, No Fatigue, No Malaise ENT/Mouth : No Hearing loss, No Ear Pain, No Nasal Congestion, No Sinus Pain, No Hoarseness, No sore throat, No Rhinorrhea, No Swallowing Difficulty Eyes: No Eye Pain, No Swelling, No Redness, No Foreign Body, No Discharge, No Vision Changes Cardiovascular : No Chest Pain, No SOB, No Dyspnea on Exertion, No Orthopnea, No Edema, No Palpitations Respiratory : No Cough, No Sputum, No Wheezing, No Smoke Exposure, No Dyspnea Gastrointestinal : No Nausea, No Vomiting, No Diarrhea, No Constipation, No abdominal Pain, No Hematochezia, No Melena Genitourinary : no irregular bleeding, No Dysuria, No Urinary Frequency, No Hematuria, No Urinary Incontinence, No Urgency, No Flank Pain, No Urinary Flow Changes, No Hesitancy Musculoskeletal : No joint pain, No Myalgias, No Joint Swelling Skin : Complaining of a skin tag/de jesus on the left hand middle finger, no Rash Neuro : No Weakness, No Numbness, No Paresthesias, No Loss of Consciousness, No Dizziness, No Headache Psych : No Anxiety/Panic, No Depression, No SI/HI/AH/VH, No Social Issues, Heme/Lymph: No Bruising, No Bleeding,No Lymphadenopathy Endocrine : No Polyuria, No Polydipsia, No Temperature Intolerance [facility] Past Medical History Medical History Heavy tobacco smoker Uncontrolled type 2 diabetes mellitus with hyperglycemia Obesity (BMI 30.0-34.9) Type 2 diabetes mellitus Social History Social History Household Members: Significant Other Housing: Apartment Do you presently have visiting nurse or other home services: No Alcohol intake: current Alcohol intake frequency: a few times a month Patient Tobacco Use Status: Current everyday Tobacco user Tobacco use type: Cigarette Cigarette Packs Per Day: 0.5 Cigarettes Per Day: 10.0 Second Hand Smoke Exposure: No Substance Use Type: Marijuana Advance Directives Date on File: 05/14/24 service: No Physical Exam ED Vital Signs: Vital Signs - 24 hr 10/09/24 02:44 Temperature 98.3 F Pulse Rate 99 Respiratory Rate 18 Blood Pressure 135/88 Pulse Oximetry 95 Oxygen Delivery Method Room Air BMI result Body Mass Index 35.3 Const Other: Appearance: Alert. Oriented X3. No acute distress. Eyes: Pupils equal, round and reactive to light. ENT: Pharynx normal. Neck: Normal inspection. Neck supple. No lymph nodes noted. No crepitus CVS: Normal heart rate and rhythm. Pulses normal. Normal S1 and S2 Respiratory: No respiratory distress. Breath sounds normal. No Wheezing. No rales Abdomen: Soft and nontender. No rigidity. No distention. Skin: Skin warm and dry. Normal skin color. Normal skin turgor. On the palm of the left hand middle finger patient has 0.5 cm by 0.5 cm wart, half rim detatched Extremities: No lower extremity edema. No Lacerations. No Rash Neuro: Oriented X 3. No motor deficit. No sensory deficit. Moving all extremities. No slurred speech. CN 2 through 12 grossly intact Psych: calm, cooperative, normal affect Medical Decision Making Medical Decision Making MDM Narrative: A finger block was placed in the right middle finger. 7 mL of 2% lidocaine The de jesus nearly fell off by itself. Very minimal assistance of an 11 size blade. Sent the tissue to pathology. Patient needed to stitches to close the foramen Discharge Plan Discharge Clinical Impression: Wart of hand Patient Disposition: Home, Self-Care Instructions: Katalina Garcia (ED), Care For Your Stitches (ED) Additional Instructions: Please return in 7-10 days for stitches removal. If you see any signs of infection such as redness, pus drainage, abnormal amount of pain, please return to the emergency room immediately. Please follow-up with your primary care physician tomorrow. If you have any worsening or new symptoms, please return to the emergency room or call 911 Prescriptions: No Action insulin lispro [Humalog KwikPen Insulin] 100 unit/mL insulin pen See Protocol subcut USEASDIRECTD Qty: 15 0RF Protocol: Insulin Correction Scale Less than or equal to 110 ---- Give (units): 0 111 to 150 Give (units): 0 151 to 200 Give (units): 2 201 to 250 Give (units): 4 251 to 300 Give (units): 6 301 to 350 Give (units): 8 Greater than 350 Give (units): 10 Call MD if Blood Glucose > : 350 insulin glargine 100 unit/mL (3 mL) insulin pen 5 unit subcut QPM Qty: 15 1RF metformin 500 mg tablet 500 mg PO BIDWMEAL Qty: 120 1RF doxycycline monohydrate 100 mg capsule 100 mg PO BID Qty: 14 0RF amoxicillin-pot clavulanate 875-125 mg tablet 1 tab PO BID Qty: 14 0RF (DME) FreeStyle Lite Strips Strip See Rx Instructions .ROUTE .MEDSUPPLY Qty: 100 2RF Rx Instructions: QID (DME) lancets Misc See Rx Instructions .ROUTE .MEDSUPPLY Qty: 200 2RF Rx Instructions: 4 times daily (DME) blood-glucose meter [FreeStyle Lite Meter] Kit See Rx Instructions .ROUTE .MEDSUPPLY Qty: 1 0RF Rx Instructions: As directed alcohol swabs Pads, Medicated 1 pad topical QIDACHS Qty: 200 2RF (DME) pen needle, diabetic [Pen Needle] 31 gauge x 5/16 needle See Rx Instructions .ROUTE .MEDSUPPLY Qty: 200 1RF Rx Instructions: As directed Print Language: Bermudian
[2024-10-09 03:36] VITALS: BP 121/85; PULSE 85; RESP 16; TEMP 36.6; O2SAT 98
[2024-10-09 03:53] VITALS: BP 121/85; PULSE 85; RESP 16; TEMP 36.6; O2SAT 98
[2024-10-09] MEDS: Lidocaine HCl 1 % MPF 5 ML VIAL 10 ML INFILTRATI (04:01)
== END 2024-10-09 04:03 | disposition home or self-care (01) ==
PROVIDERS: Emergency Provider Emergency Medicine
DX: B07.9 Viral wart, unspecified (principal); F17.210 Nicotine dependence, cigarettes, uncomplicated; E11.9 Type 2 diabetes mellitus without complications; Z79.4 Long term (current) use of insulin; Z79.899 Other long term (current) drug therapy
CPT/HCPCS: 11420; 99284; J2003